=== PATIENT | female | born 1965 | race Caucasian/White ===

== ENCOUNTER → 2023-07-05 07:29 | Outpatient (REF) | payer OTHER, SELFPAY | LOC: HWRAD 07:29 | PROVIDERS: ATTENDING PHYSICIAN Nurse Practitioner Primary Care | DX: R22.2 Localized swelling, mass and lump, trunk (principal) | CPT/HCPCS: 76604 ==

== ENCOUNTER → 2023-07-13 16:12 | Outpatient (REF) | payer OTHER, SELFPAY | LOC: HWWDC 16:12 | PROVIDERS: ATTENDING PHYSICIAN Nurse Practitioner Primary Care | DX: Z12.31 Encounter for screening mammogram for malignant neoplasm of breast (principal) | CPT/HCPCS: 77063; 77067 ==

== ENCOUNTER → 2024-12-11 07:47 | Outpatient (REF) | payer OTHER, SELFPAY ==
[2024-12-11 08:24] LABS: Urine Character Clear (Clear)
[2024-12-11 08:36] LABS: Hematocrit 40.2 % (37.0-47.0); Hemoglobin 13.2 g/dL (12.0-16.0); Mean Corp Hgb Conc. 32.8 g/dL (33.0-37.0); Mean Corpuscular Volume 89.1 fL (81.0-99.0); Nucleated Red Blood Cells % 0 %; Platelet Count 270 10^3/uL (130-400); Red Cell Dist. Width 13.2 % (11.5-14.5)
[2024-12-11 08:52] LABS: Urine White Cell 0-2 /HPF (0-5)
[2024-12-11 09:54] LABS: ALT (SGPT) 20 U/L (0-35); AST (SGOT) 21 U/L (14-36); Albumin 4.5 g/dl (3.5-5.0); Alkaline Phosphatase 60 U/L (38-126); Blood Urea Nitrogen 15 mg/dl (7-17); Calcium 9.4 mg/dl (8.4-10.2); Carbon Dioxide 26 mmol/L (22-30); Chloride 107 mmol/L (98-107); Glucose 78 mg/dl (70-99); HDL Cholesterol 71 mg/dl; LDL Cholesterol, Calculated 129 mg/dl; Potassium 4.2 mmol/L (3.5-5.1); Sodium 139 mmol/L (135-145); Total Protein 6.5 g/dl (6.3-8.2); Very Low Density Lipoprotein 8 mg/dl (0-30); eGFR > 60.00
[2024-12-11 10:00] LABS: Vitamin D, 25-OH*** 51.3 ng/mL (30-80)
[2024-12-11 10:14] LABS: TSH 1.37 uIU/ml (0.47-4.68)
== END ==
LOC: REG 07:47
PROVIDERS: ATTENDING PHYSICIAN Nurse Practitioner Adult Health
DX: Z79.899 Other long term (current) drug therapy (principal); Z00.00 Encounter for general adult medical examination without abnormal findings; E78.2 Mixed hyperlipidemia; E78.00 Pure hypercholesterolemia, unspecified
CPT/HCPCS: 36415; 80053; 80061; 81003; 81015; 82306; 84443; 85025

== ENCOUNTER → 2025-01-23 12:10 | Outpatient (REF) | payer OTHER, SELFPAY ==
[2025-01-23 12:43] LABS: Urine Character Clear (Clear)
[2025-01-23 13:54] LABS: Urine Red Blood Cell 0-2 /HPF (0-2); Urine Squamous Cell 0-2 /LPF (Few); Urine White Cell 0-2 /HPF (0-5)
== END ==
LOC: REG 12:10
PROVIDERS: ATTENDING PHYSICIAN Nurse Practitioner Primary Care
DX: R31.29 Other microscopic hematuria (principal)
CPT/HCPCS: 81003; 81015